=== PATIENT | female | born 1940 | race Caucasian/White ===

== ENCOUNTER → 2025-07-30 16:11 | Outpatient (REF) | payer OTHER, SELFPAY ==
[2025-08-14 15:57] LABS: Hematocrit 41.7 % (37.0-47.0); Hemoglobin 13.6 g/dL (12.0-16.0); Mean Corp Hgb Conc. 32.6 g/dL (33.0-37.0); Mean Corpuscular Volume 92.7 fL (81.0-99.0); Platelet Count 177 10^3/uL (130-400); Red Cell Dist. Width 13.6 % (11.5-14.5)
[2025-08-14 15:58] LABS: Nucleated Red Blood Cells % 0 %
[2025-08-14 16:02] LABS: Alkaline Phosphatase 75 U/L (38-126); Blood Urea Nitrogen 22 mg/dl (7-17); Carbon Dioxide 34 mmol/L (22-30); Chloride 103 mmol/L (98-107); Glucose 80 mg/dl (70-99); Potassium 3.6 mmol/L (3.5-5.1); Sodium 140 mmol/L (135-145); eGFR > 60.00
[2025-08-14 16:03] LABS: ALT (SGPT) 20 U/L (0-35); AST (SGOT) 38 U/L (14-36); Albumin 3.5 g/dl (3.5-5.0); Calcium 9.0 mg/dl (8.4-10.2); HDL Cholesterol 78 mg/dl; LDL Cholesterol, Calculated 41 mg/dl; Total Protein 5.9 g/dl (6.3-8.2); Very Low Density Lipoprotein 10 mg/dl (0-30)
== END ==
LOC: OLABMERCHI 16:11
PROVIDERS: ATTENDING PHYSICIAN Family Medicine
DX: I10 Essential (primary) hypertension (principal); R60.0 Localized edema; R73.9 Hyperglycemia, unspecified; I25.10 Atherosclerotic heart disease of native coronary artery without angina pectoris; N18.9 Chronic kidney disease, unspecified
CPT/HCPCS: 80053; 80061; 82077; 83880; 84443; 85025